=== PATIENT | female | born 1975 | race African-American/Black ===

== ENCOUNTER 2016-11-24 06:59 | Inpatient (IN) | payer OTHER ==
[2016-11-24] VITALS (19 sets, daily range): BP systolic 107–131; BP diastolic 58–85
[~2016-11-24] VITALS: Ht 165.1 cm; Wt 106.8 kg
[~2016-11-24 06:59] MED LIST: KEFLEX500 MG PO; NAPROSYN500 MG PO; ZANTAC150 MG PO
[2016-11-24] MEDS ORDERED: LO-DOSE ASPIRIN81 M2 PO (07:37)
[2016-11-24] MEDS ORDERED: OMEPRAZOLE40 M1 PO (07:39)
[2016-11-24] MEDS ORDERED: DIABETA2.5 MG PO (07:39)
[2016-11-24] MEDS ORDERED: FERROUS SULFAT325 MG PO (07:40)
[2016-11-24 09:29] LABS: EOSINOPHIL (%) 1.1 % (0-5); EOSINOPHIL COUNT 0.1 K/uL (0-0.3); HEMATOCRIT 33.3 % (36.0-46.0); IMMATURE GRANULOCYTE (%) 0.7 % (0.0-0.7); INSTRUMENT ABS NEUTROPHIL CT 4.3 K/uL; LYMPHOCYTE COUNT 1.2 K/uL (1.0-2.8); MCHC 33.9 G/DL (30.0-36.0); MCV 85.6 FL (83-99); MEAN PLAT.VOLUME 10.8 uM^3 (9.5-12.4); MONOCYTE (%) 7.5 % (3-12); MONOCYTE COUNT 0.5 K/uL (0-0.8); NEUTROPHIL COUNT 4.3 K/uL (1.8-6.4); PLATELET COUNT 164 K/uL (156-360); RBC DIS.WIDTH-CV 16.4 % (11.8-14.6); RBC DIS.WIDTH-SD 51.8 % (39-53); RED BLOOD COUNT 3.89 M/uL (3.80-5.20); WHITE BLOOD COUNT 6.1 K/uL (4.1-10.2)
[2016-11-24 10:06] LABS: ALKALINE PHOSPHATASE 72 IU/L (3-129); ANION GAP 10 MEQ/L (2-14); CHLORIDE 105 MEQ/L (99-109); GFR ESTIMATE (CALCULATED) > 59 mL/min/; GLUCOSE 91 mg/dL (70-99); LACTATE DEHYDROGENASE 110 IU/L (20-246); POTASSIUM 3.5 MEQ/L (3.7-5.4); SAMPLE HEMOLYSIS CHECK 0; SAMPLE ICTERIC CHECK 0; SAMPLE LIPEMIA CHECK 0; SODIUM 136 MEQ/L (136-147); TOTAL BILIRUBIN 0.4 MG/DL (0.0-1.0); UREA NITROGEN (BUN) 5 mg/dL (9-23); URIC ACID 4.9 mg/dL (3.1-9.2)
[2016-11-24 10:28] LABS: Estimated Average Glucose 126 mg/dL (70-123)
[2016-11-25] VITALS (11 sets, daily range): BP systolic 114–135; BP diastolic 58–87
[2016-11-26 07:38] VITALS: BP 108/68
[2016-11-26 07:55] LABS: POINT-OF-CARE METER ID UU13113801
[2016-11-26 08:13] LABS: EOSINOPHIL COUNT 0.2 K/uL (0-0.3); IMMATURE GRANULOCYTE (%) 0.7 % (0.0-0.7); IMMATURE GRANULOCYTE COUNT 0.1 K/uL; INSTRUMENT ABS NEUTROPHIL CT 4.8 K/uL; MCH 29.4 PG (29.0-34.0); MCHC 33.6 G/DL (30.0-36.0); MCV 87.5 FL (83-99); MONOCYTE (%) 7.2 % (3-12); MONOCYTE COUNT 0.6 K/uL (0-0.8); NEUTROPHIL (%) 62.9 % (45-76); NEUTROPHIL COUNT 4.8 K/uL (1.8-6.4); PLATELET COUNT 171 K/uL (156-360); RBC DIS.WIDTH-CV 16.3 % (11.8-14.6); RBC DIS.WIDTH-SD 52.2 % (39-53); RED BLOOD COUNT 3.77 M/uL (3.80-5.20); WHITE BLOOD COUNT 7.6 K/uL (4.1-10.2)
[2016-11-26 09:25] LABS: POINT-OF-CARE METER ID UU13113801
[2016-11-26 10:18] LABS: POINT-OF-CARE METER ID UU13113801
[2016-11-26] MEDS ORDERED: METFORMIN HCL500 MG PO (12:17)
[2016-11-26 15:05] VITALS: BP 114/66
== END 2016-11-26 17:58 | disposition home or self-care (01) | DRG 774 ==
LOC: LDRP-OP → 2WEST 07:00 → LDRP-OP 07:24 → 2WEST 11-25 01:23 → LDRP-OP 12-30 13:37
PROVIDERS: Advanced Practice Midwife; Obstetrics & Gynecology
DX: O70.1 Second degree perineal laceration during delivery (principal); O99.824 Streptococcus B carrier state complicating childbirth; O69.81X0 Labor and delivery complicated by cord around neck, without compression, not applicable or unspecified; O09.523 Supervision of elderly multigravida, third trimester; Z37.0 Single live birth; Z3A.39 39 weeks gestation of pregnancy; O24.32 Unspecified pre-existing diabetes mellitus in childbirth; E11.9 Type 2 diabetes mellitus without complications; O99.02 Anemia complicating childbirth; D64.9 Anemia, unspecified
CPT/HCPCS: 80053; 82948; 83036; 83615; 84550; 85025; 86900; 86901; G0378; J0595; J2540; J7120

== ENCOUNTER 2017-07-18 08:59 | Emergency (ER) | payer OTHER ==
[~2017-07-18] VITALS: Ht 180.3 cm; Wt 104.8 kg
[~2017-07-18 08:59] MED LIST changes: +DIABETA2.5 MG PO; +FERROUS SULFAT325 MG PO; +LO-DOSE ASPIRIN81 M2 PO; +METFORMIN HCL500 MG PO; +OMEPRAZOLE40 M1 PO
[2017-07-18 09:53] LABS: HEMATOCRIT 36.1 % (36.0-46.0); MCH 28.7 PG (29.0-34.0); MCHC 33.2 G/DL (30.0-36.0); MCV 86.4 FL (83-99); PLATELET COUNT 238 K/uL (156-360); RBC DIS.WIDTH-CV 12.7 % (11.8-14.6); RBC DIS.WIDTH-SD 40.1 % (39-53); RED BLOOD COUNT 4.18 M/uL (3.80-5.20); WHITE BLOOD COUNT 4.4 K/uL (4.1-10.2)
[2017-07-18 10:01] LABS: CHLORIDE 103 mEq/L (99-109); POTASSIUM 3.6 mEq/L (3.7-5.4); SODIUM 136 mEq/L (136-147)
[2017-07-18 10:03] LABS: GLUCOSE 157 mg/dL (70-99)
[2017-07-18 10:04] LABS: BILIRUBIN NEGATIVE; COLOR AMBER ((YELLOW)); GLUCOSE (STRIP) 50; KETONES NEGATIVE; LEUKOCYTES NEGATIVE; NITRITE NEGATIVE; PROTEIN (STRIP) 100; SPECIFIC GRAVITY 1.019 (1.000-1.030); UROBILINOGEN 0.2 MG/DL (0.2-1.0)
[2017-07-18 10:06] LABS: APPEARANCE BLOODY ((CLEAR)); BLOOD LARGE; RED BLOOD CELLS TNTC /HPF (0-5)
[2017-07-18 10:07] LABS: UCUL ADDED? YES
[2017-07-18 10:07] LABS: CREATININE 0.8 mg/dL (0.6-1.3); GFR ESTIMATE (CALCULATED) > 59 mL/min/; UREA NITROGEN (BUN) 11 mg/dL (9-23)
[2017-07-18 10:15] LABS: QUANTITATIVE HCG < 4.0 MIU/ML
[2017-07-18 10:47] LABS: ALBUMIN 4.1 g/dL (3.2-4.8)
[2017-07-18 10:50] LABS: TOTAL PROTEIN 7.2 g/dL (6.4-8.3)
[2017-07-18 10:52] LABS: TOTAL BILIRUBIN 0.5 mg/dL (0.0-1.0)
[2017-07-18 10:53] LABS: ALKALINE PHOSPHATASE 52 IU/L (3-129)
[2017-07-18 10:55] LABS: AST (GOT) 45 IU/L (2-34); DIRECT BILIRUBIN 0.2 mg/dL (0.0-0.3)
[2017-07-18 10:56] LABS: ALT (GPT) 32 IU/L (3-49); LIPASE 27 U/L (1.0-51.0)
[2017-07-18] MEDS ORDERED: PERCOCET 5/31 TABLET PO (14:52)
[2017-07-18 15:03] VITALS: BP 117/77
== END 2017-07-18 15:13 | disposition home or self-care (01) ==
LOC: EME 08:59
DX: R10.84 Generalized abdominal pain (principal)
CPT/HCPCS: 74176; 76705; 80048; 80076; 81003; 83690; 84702; 85027; 87086; 99281; 99285; J2270; J2405; J7030